=== PATIENT | female | born 1950 | race Two or more races ===

== ENCOUNTER 2020-01-09 11:04 | Emergency (ER) | payer OTHER ==
[~2020-01-09] VITALS: Ht 165.1 cm; Wt 71.2 kg
[~2020-01-09 11:04] MED LIST: LORADAMED10 MG
[2020-01-09] MEDS ORDERED: UCERIS9 MG (11:35)
[2020-01-09] MEDS ORDERED: SINGULAIR 10MG10 MG (11:35)
[2020-01-09] MEDS ORDERED: HYPER-SAL4 M1 (11:36)
[2020-01-09] MEDS ORDERED: XOPENEX HFA15 GM (11:37)
[2020-01-09] MEDS ORDERED: MEDROLPACK PO (14:28)
[2020-01-09] MEDS ORDERED: LOSARTAN POTASS25 MG PO (14:47)
[2020-01-09] MEDS ORDERED: PYRIDIUM DS200 MG PO (14:47)
== END 2020-01-09 14:47 ==
LOC: ER 11:04
DX: B34.9 Viral infection, unspecified (principal); J45.909 Unspecified asthma, uncomplicated; R06.02 Shortness of breath; Z20.828 Contact with and (suspected) exposure to other viral communicable diseases